=== PATIENT | female | born 1980 | race Caucasian/White ===

== ENCOUNTER 2016-11-07 20:26 | Emergency (ER) | payer OTHER ==
[~2016-11-07] VITALS: Ht 170.2 cm; Wt 65.9 kg
[~2016-11-07 20:26] MED LIST: ACET500T33 PO
--- NOTE | 2016-11-07 20:38 | PHYS DOC ---
Past History Past Medical History: Other Additional Past Medical Histor: Crohn's disease Past Surgical History: , Tonsillectomy Additional Past Surgical Histo: small bowel resection for Crohn's disease Smoking: Non-smoker Alcohol Use: None Drug Use: None Adult General HPI HPI Patient is a 36 year old F who presents with left foot pain. Patient states she' s been having left foot pain since Friday. Patient states she was doing lunges at the gym and after her workout noticed her left foot started hurting. She's been icing it but the pain has progressively gotten worse and the pain is over her midfoot. Patient also notes some redness to her midfoot. Patient states becoming more difficult to walk on it. Patient denies any injuries to the ankle or knee. Patient has no other complaints. Patient denies any fevers or chills. Review of Systems Review of Systems GEN: Denies fevers, chills, sweats HEENT: Denies blurred vision, sore throat CV: Denies chest pain RESP: Denies shortness of air, cough GI: Denies n/v/d NEURO: Denies confusion, dizziness MSK: Left foot pain Allergies Allergies Allergies Coded Allergies Type Severity Reaction Last Updated Verified Erythromycin Base Allergy Intermediate Nausea and Vomiting 09/01/13 Yes Penicillins Allergy Intermediate Rash 09/01/13 Yes iodine Allergy Unknown Unknown 09/01/13 No Physical Exam Physical Exam GEN.: No apparent distress. Alert and oriented. HEENT: Head is normocephalic, atraumatic NECK: Supple. LUNGS: CTAB. HEART: RRR, S1, S2 present. Peripheral pulses intact ABDOMEN: Soft, nontender. Positive bowel sounds. EXTREMITIES: Without any cyanosis. Tenderness palpation of the left midfoot, no swelling, capillary refill to the toes less than 2 seconds, no deformity, no swelling or pain to the ankle or knee on the left NEUROLOGIC: Normal speech, normal tone PSYCHIATRIC: Normal affect, normal mood. SKIN: No ulcerations EKG EKG [] Radiology/Procedures Radiology/Procedures X-ray left foot no obvious fracture[] Course & Med Decision Making Course & Med Decision Making Pertinent Labs and Imaging studies reviewed. (See chart for details) ED course: Patient was seen and examined emergency room an x-ray of her left foot was ordered 2108: Patient was updated on x-ray findings of the foot and will place a postop shoe on the patient. MDM: After reviewing the chart, CC/HPI/PMH, physical exam, [radiological results], I do not believe the patient sustained a significant injury to the left foot warranting further workup and/or admission at this time. I do not see an obvious fracture at this time however place the patient in a postop shoe and recommended short-term follow-up with her PCP for further evaluation and management. Recommended elevation, ice, [id number] anti-inflammatory medication to help with pain. Patient is stable for discharge. Additional verbal discharge instructions were provided to the patient and that if symptoms get worse or any new symptoms arise that are worrisome to the patient she is to return to the emergency room immediately [] Dragon Disclaimer Dragon Disclaimer This chart was dictated in whole or in part using Voice Recognition software in a busy, high-work load, and often noisy Emergency Department environment. It may contain unintended and wholly unrecognized errors or omissions. Departure Departure: Impression: Primary Impression: Sprain of foot, left Disposition: 01 HOME, SELF-CARE Condition: IMPROVED Patient Instructions: Foot Contusion Additional Instructions: Please follow-up with your family physician in the next one to 2 days and return if symptoms increase Scripts Ibuprofen (IBUPROFEN) 800 Mg Tablet 1 TAB PO TID for 10 Days, #30 TAB 1 Refill Prov: LISSA LOPEZ DO 11/07/16 LISSA LOPEZ DO Nov 07, 2016 20:38
[2016-11-07 20:41] VITALS: BP 124/53
[2016-11-07] MEDS ORDERED: IBUP800T19 PO (21:11)
--- NOTE | 2016-11-08 07:29 | RAD ---
EXAM: Left foot 3 views. HISTORY: Left midfoot pain. COMPARISON: None. FINDINGS: No fractures are identified. Joint spaces and alignment are maintained. There is a small plantar calcaneal spur. IMPRESSION: 1. No fracture or malalignment.
== END 2016-11-07 21:22 | disposition home or self-care (01) ==
LOC: ER 20:26
DX: S93.602A Unspecified sprain of left foot, initial encounter (principal); K50.90 Crohn's disease, unspecified, without complications; Z88.0 Allergy status to penicillin; Z88.1 Allergy status to other antibiotic agents; Z91.041 Radiographic dye allergy status; X50.3XXA Overexertion from repetitive movements, initial encounter; Y93.89 Activity, other specified; Y92.39 Other specified sports and athletic area as the place of occurrence of the external cause; Y99.8 Other external cause status
CPT/HCPCS: 73630; 99284